=== PATIENT | female | born 1950 | race Caucasian/White ===

== ENCOUNTER 2024-07-27 10:31 | Inpatient (IN) | payer MEDICARE ==
--- NOTE | 2024-07-27 11:23 | ED ---
General Adult HPI - General Chief complaint: Altered Mental Status Stated complaint: AMS Time Seen by Provider: 07/27/24 10:50 Source: patient, family, RN notes reviewed, old records reviewed Mode of arrival: ambulatory - History of Present Illness Initial comments: This is a 73-year-old female whose sister has her come to the emergency department because she is confused. According to the sister last night after they ate dinner the patient was slightly confused and then she went down to get dressed and the patient was standing there with her close but was unable to figure out how to put her pajamas on. Sister states she does have a seizure history but does not know what medication she is on. Sister stated that she thought she might get over it so she slept overnight and this morning the patient continued to be significantly confused so she brought her into [facility] department. Patient has not had any recent fever chills or cough or patient has no nausea vomiting or diarrhea recently patient has no complaints herself. And she does not know why she is here and does not remember any of these episodes where she was confused but continues to be confused here - Related Data Home Medications Medication Instructions Recorded Confirmed Atorvastatin [Lipitor] 40 mg PO DAILY 07/27/24 07/27/24 Citalopram Hydrobromide [CeleXA] 10 mg PO DAILY 07/27/24 07/27/24 Losartan [Cozaar] 50 mg PO DAILY 07/27/24 07/27/24 clonazePAM [KlonoPIN] 0.25 mg PO TID PRN 07/27/24 07/27/24 hydroCHLOROthiazide [Hydrodiuril] 25 mg PO DAILY 07/27/24 07/27/24 levETIRAcetam [Keppra] 1,000 mg PO BID 07/27/24 07/27/24 Allergies Allergy/AdvReac Type Severity Reaction Status Date / Time No Known Allergies Allergy Verified 07/27/24 11:20 Review of Systems ROS Statement: Those systems with pertinent positive or pertinent negative responses have been documented in the HPI. ROS Other: All systems not noted in ROS Statement are negative. Past Medical History Past Medical History: Hyperlipidemia, Hypertension Past Surgical History: No Surgical Hx Reported General Exam - General Exam Comments Initial Comments: GENERAL: Patient is well-developed and well-nourished. Patient is nontoxic and well-hydr ated and is in no acute distress. ENT: Neck is soft and supple. No significant lymphadenopathy is noted. Oropharynx is clear. Moist mucous membranes. Neck has full range of motion without eliciting any pain. EYES: The sclera were anicteric and conjunctiva were pink and moist. Extraocular mov ements were intact and pupils were equal round and reactive to light. Eyelids were unremarkable. PULMONARY: Unlabored respirations. Good breath sounds bilaterally. No audible rales rhonchi or wheezing was noted. CARDIOVASCULAR: There is a regular rate and rhythm without any murmurs gallops or rubs. ABDOMEN: Soft and nontender with normal bowel sounds. No palpable organomegaly was noted. There is no palpable pulsatile mass. SKIN: Skin is clear with no lesions or rashes and otherwise unremarkable. NEUROLOGIC: Patient is alert and oriented x 2. Patient could not figure out how to take her for close to get a count on cranial nerves II through XII are grossly intact. Motor and sensory are also intact. Normal speech, volume and content. Symmetrical smile. MUSCULOSKELETAL: Normal extremities with adequate strength and full range of motion. No lower extremity swelling or edema. No calf tenderness. LYMPHATICS: No significant lymphadenopathy is noted PSYCHIATRIC: Unable to assess secondary to the patient's altered mental status Course Vital Signs 07/27/24 07/27/24 07/27/24 10:42 11:52 13:03 Temperature 97.7 F Pulse Rate 72 66 89 Respiratory 20 18 12 Rate Blood Pressure 218/75 187/75 213/78 O2 Sat by Pulse 95 97 98 Oximetry 07/27/24 14:14 Temperature Pulse Rate 79 Respiratory 16 Rate Blood Pressure 153/74 O2 Sat by Pulse Oximetry Medical Decision Making - Medical Decision Making EKG shows a sinus rhythm at 72 bpm NC 165 QRS is 90 QT interval 373 QTc is 397. Patient's EKG shows no ST segment elevation or depression Was pt. sent in by a medical professional or institution (, PA, MINESWEEPING OFFICER, urgent care, hospital, or [facility]...) When possible be specific @ -No Did you speak to anyone other than the patient for history (EMS, parent, family, police, friend...)? What history was obtained from this source @ -No Did you review nursing and triage notes (agree or disagree)? Why? @ -I reviewed and agree with nursing and triage notes Were old charts reviewed (outside hosp., previous admission, EMS record, old EKG, old radiological studies, urgent care reports/EKG's, [facility] records)? Report findings @ -No old charts were reviewed Differential Diagnosis? @ -Differential Altered Mental Status: Hypoglycemia, DKA, hypercapnia, ETOH, overdose, CO poisoning, trauma, myxedema coma, HTN encephalopathy, infection, encephalitis, psychosis, intercranial hemorrhage, hepatic encephalopathy, meningitis, CVA, seizure, this is not meant to be an all-inclusive list EKG interpreted by me (3pts min.). @ -As above X-rays interpreted by me (1pt min.). @ -Chest x-ray shows no acute abnormality CT interpreted by me (1pt min.). @ -CT of the brain showed no acute abnormality. Patient had a seizure and fell in the room and hit her head and a CT of the brain and neck were done and showed no acute abnormality U/S interpreted by me (1pt. min.). @ -None done What testing was considered but not performed or refused? (CT, X-rays, U/S, labs)? Why? @ -None What meds were considered but not given or refused? Why? @ -None Did you discuss the management of the patient with other professionals (professionals i.e. , PA, MINESWEEPING OFFICER, lab, RT, psych nurse, social worker delinquency prevention, access clinician, teacher, credit risk officer, real estate office manager)? Give summary @ -I spoke with [place] [facility] they agreed to admit the patient Was smoking cessation discussed for >3mins.? @ -No Was critical care preformed (if so, how long)? @ -No Were there social determinants of health that impacted care today? How? (Homelessness, low income, unemployed, alcoholism, drug addiction, transportation, low edu. Level, literacy, decrease access to med. care, snf, rehab)? @ -No Was there de-escalation of care discussed even if they declined (Discuss DNR or withdrawal of care, Hospice)? DNR status @ -No What co-morbidities impacted this encounter? (DM, HTN, Smoking, COPD, CAD, Cancer, CVA, ARF, Chemo, Hep., AIDS, mental health diagnosis, sleep apnea, mo rbid obesity)? @ -None Was patient admitted / discharged? Hospital course, mention meds given and ro jamul, prescriptions, significant lab abnormalities, going to OR and other pertinent info. @ -Patient had a seizure in the emergency department and hit her head and neck the repeat CT of the brain was done and his C-spine was done and it was negative. Patient was given Ativan and Keppra. Undiagnosed new problem with uncertain prognosis? @ -No Drug Therapy requiring intensive monitoring for toxicity (Heparin, Nitro, Insulin, Cardizem)? @ -No Were any procedures done? @ -No Diagnosis/symptom? @ -Status epilepticus Acute, or Chronic, or Acute on Chronic? @ -Acute Uncomplicated (without systemic symptoms) or Complicated (systemic symptoms)? @ -Complicated Side effects of treatment? @ -No Exacerbation, Progression, or Severe Exacerbation? @ -No Poses a threat to life or bodily function? How? (Chest pain, USA, NC, pneumonia, PE, COPD, DKA, ARF, appy, cholecystitis, CVA, Diverticulitis, Homicidal, Suicidal, threat to staff... and all critical care pts) @ -Yes this can lead to further seizures and morbidity. Diagnosis/symptom? @ -Altered mental status Acute, or Chronic, or Acute on Chronic? @ -Acute Uncomplicated (without systemic symptoms) or Complicated (systemic symptoms)? @ -Complicated Side effects of treatment? @ -None Exacerbation, Progression, or Severe Exacerbation] @ -No Poses a threat to life or bodily function? @ -No - Lab Data Result diagrams: 07/27/24 11:22 07/27/24 11:22 Lab Results 07/27/24 07/27/24 07/27/24 Range/Units 11:22 11:22 11:22 WBC 6.7 (3.8-10.6) k/uL RBC 4.89 (3.80-5.40) m/uL Hgb 14.6 (11.4-16.0) gm/dL Hct 43.0 (34.0-46.0) % MCV 87.9 (80.0-100.0) fL MCH 29.8 (25.0-35.0) pg MCHC 34.0 (31.0-37.0) g/dL RDW 13.1 (11.5-15.5) % Plt Count 197 (150-450) k/uL MPV 7.6 Neutrophils % 70 % Lymphocytes % 21 % Monocytes % 4 % Eosinophils % 2 % Basophils % 1 % Neutrophils # 4.7 (1.3-7.7) k/uL Lymphocytes # 1.4 (1.0-4.8) k/uL Monocytes # 0.3 (0-1.0) k/uL Eosinophils # 0.1 (0-0.7) k/uL Basophils # 0.1 (0-0.2) k/uL Sodium 140 (137-145) mmol/L Potassium 5.0 (3.5-5.1) mmol/L Chloride 102 (98-107) mmol/L Carbon Dioxide 28 (22-30) mmol/L Anion Gap 10 mmol/L BUN 18 H (7-17) mg/dL Creatinine 0.74 (0.52-1.04) mg/dL Est GFR (CKD-EPI)AfAm >90 (>60 ml/min/1.73 sqM) Est GFR (CKD-EPI)NonAf 82 (>60 ml/min/1.73 sqM) Glucose 94 (74-99) mg/dL POC Glucose (mg/dL) (70-110) mg/dL POC Glu Educational Diagnostician ID Calcium 10.2 (8.4-10.2) mg/dL Total Bilirubin 1.2 (0.2-1.3) mg/dL AST 42 H (14-36) U/L ALT 34 (4-34) U/L Alkaline Phosphatase 102 (38-126) U/L Troponin I 0.017 (0.000-0.034) ng/mL Total Protein 7.5 (6.3-8.2) g/dL Albumin 4.8 (3.5-5.0) g/dL Urine Color Urine Appearance (Clear) Urine pH (5.0-8.0) Ur Specific Jessie (1.001-1.035) Urine Protein (Negative) Urine Glucose (UA) (Negative) Urine Ketones (Negative) Urine Blood (Negative) Urine Nitrite (Negative) Urine Bilirubin (Negative) Urine Urobilinogen (<2.0) mg/dL Ur Leukocyte Esterase (Negative) Urine Opiates Screen (NotDetected) Ur Oxycodone Screen (NotDetected) Urine Methadone Screen (NotDetected) Ur Barbiturates Screen (NotDetected) U Tricyclic Antidepress (NotDetected) Ur Phencyclidine Scrn (NotDetected) Ur Amphetamines Screen (NotDetected) U Methamphetamines Scrn (NotDetected) U Benzodiazepines Scrn (NotDetected) Urine Cocaine Screen (NotDetected) U Marijuana (THC) Screen (NotDetected) 07/27/24 07/27/24 07/27/24 Range/Units 11:23 11:55 13:41 WBC (3.8-10.6) k/uL RBC (3.80-5.40) m/uL Hgb (11.4-16.0) gm/dL Hct (34.0-46.0) % MCV (80.0-100.0) fL MCH (25.0-35.0) pg MCHC (31.0-37.0) g/dL RDW (11.5-15.5) % Plt Count (150-450) k/uL MPV Neutrophils % % Lymphocytes % % Monocytes % % Eosinophils % % Basophils % % Neutrophils # (1.3-7.7) k/uL Lymphocytes # (1.0-4.8) k/uL Monocytes # (0-1.0) k/uL Eosinophils # (0-0.7) k/uL Basophils # (0-0.2) k/uL Sodium (137-145) mmol/L Potassium (3.5-5.1) mmol/L Chloride (98-107) mmol/L Carbon Dioxide (22-30) mmol/L Anion Gap mmol/L BUN (7-17) mg/dL Creatinine (0.52-1.04) mg/dL Est GFR (CKD-EPI)AfAm (>60 ml/min/1.73 sqM) Est GFR (CKD-EPI)NonAf (>60 ml/min/1.73 sqM) Glucose (74-99) mg/dL POC Glucose (mg/dL) 94 (70-110) mg/dL POC Glu Educational Diagnostician ID Jarrod Johnson Calcium (8.4-10.2) mg/dL Total Bilirubin (0.2-1.3) mg/dL AST (14-36) U/L ALT (4-34) U/L Alkaline Phosphatase (38-126) U/L Troponin I (0.000-0.034) ng/mL Total Protein (6.3-8.2) g/dL Albumin (3.5-5.0) g/dL Urine Color Colorless Urine Appearance Clear (Clear) Urine pH 6.0 (5.0-8.0) Ur Specific Jessie 1.008 (1.001-1.035) Urine Protein Negative (Negative) Urine Glucose (UA) Negative (Negative) Urine Ketones Negative (Negative) Urine Blood Negative (Negative) Urine Nitrite Negative (Negative) Urine Bilirubin Negative (Negative) Urine Urobilinogen <2.0 (<2.0) mg/dL Ur Leukocyte Esterase Negative (Negative) Urine Opiates Screen Not Detected (NotDetected) Ur Oxycodone Screen Not Detected (NotDetected) Urine Methadone Screen Not Detected (NotDetected) Ur Barbiturates Screen Not Detected (NotDetected) U Tricyclic Antidepress Not Detected (NotDetected) Ur Phencyclidine Scrn Not Detected (NotDetected) Ur Amphetamines Screen Not Detected (NotDetected) U Methamphetamines Scrn Not Detected (NotDetected) U Benzodiazepines Scrn Not Detected (NotDetected) Urine Cocaine Screen Not Detected (NotDetected) U Marijuana (THC) Screen Not Detected (NotDetected) Critical Care Time Critical Care Time: Yes Total Critical Care Time: 35 Disposition Clinical Impression: Altered mental status, Status epilepticus Disposition: ADMITTED IP TO [facility] Instructions (If sedation given, give patient instructions): Seizure/Epilepsy Discharge Instructions & Follow-Up Referrals: None,Stated [REFERRING] - 1-2 days Time of Disposition: 14:17
[2024-07-27 11:31] LABS: Basophils # (A) 0.1 k/uL (0-0.2); Basophils % (A) 1 %; Eosinophils # (A) 0.1 k/uL (0-0.7); Eosinophils % (A) 2 %; HGB 14.6 gm/dL (11.4-16.0); Lymphocytes # (A) 1.4 k/uL (1.0-4.8); Lymphocytes % (A) 21 %; MCH 29.8 pg (25.0-35.0); MCV 87.9 fL (80.0-100.0); Mean Platelet Volume 7.6; Monocytes # (A) 0.3 k/uL (0-1.0); Monocytes % (A) 4 %; Neutrophils # (A) 4.7 k/uL (1.3-7.7); Neutrophils % (A) 70 %; Platelet Count 197 k/uL (150-450); RBC 4.89 m/uL (3.80-5.40); RDW 13.1 % (11.5-15.5); WBC 6.7 k/uL (3.8-10.6)
--- NOTE | 2024-07-27 11:46 | XR ---
EXAMINATION TYPE: XR chest 2V DATE OF EXAM: 07/27/2024 11:42 AM COMPARISON: None TECHNIQUE: XR chest 2V Frontal and lateral views of the chest. CLINICAL INDICATION:Female, 73 years old with history of altered mental status; FINDINGS: Lungs/Pleura: There is no evidence of pleural effusion, focal consolidation, or pneumothorax. Bibasi lar subsegmental atelectasis. Pulmonary vascularity: Unremarkable. Heart/mediastinum: Cardiomediastinal silhouette is prominent in size. Atherosclerotic calcifications are seen in the aorta. Musculoskeletal: No acute osseous pathology. IMPRESSION: No acute cardiopulmonary disease/process. [facility], , 07/27/2024 11:44 AM
[2024-07-27 11:49] LABS: ALT 34 U/L (4-34); African American GFR (CKD) >90 (>60 ml/min/1.73 sqM); Albumin 4.8 g/dL (3.5-5.0); Anion Gap 10 mmol/L; Blood Urea Nitrogen 18 mg/dL (7-17); Calcium 10.2 mg/dL (8.4-10.2); Carbon Dioxide 28 mmol/L (22-30); Chloride 102 mmol/L (98-107); Glucose 94 mg/dL (74-99); Non-African American GFR(CKD) 82 (>60 ml/min/1.73 sqM); Sodium 140 mmol/L (137-145); Total Bilirubin 1.2 mg/dL (0.2-1.3); Total Protein 7.5 g/dL (6.3-8.2)
[2024-07-27 11:50] LABS: AST 42 U/L (14-36); Alkaline Phosphatase 102 U/L (38-126)
[2024-07-27] MEDS: SODIUM CHLORIDE 0.9% 500 ML 500 ML IV ONE (11:51)
[2024-07-27 11:56] LABS: Glucose,Whole Blood 94 mg/dL (70-110)
--- NOTE | 2024-07-27 11:58 | CT ---
EXAMINATION TYPE: CT brain wo con CT DLP: 1110.4 mGycm, Automated exposure control for dose reduction was used. DATE OF EXAM: 07/27/2024 11:44 AM COMPARISON: None. CLINICAL INDICATION:Female, 73 years old with history of Altered mental status, AMS. confusion, speec h difficulty TECHNIQUE: Brain: Multiple axial CT images of the brain were obtained without IV contrast. . Coronal and sagitta l reformats reviewed. FINDINGS: Brain: Extra-axial spaces: No abnormal extra-axial fluid collections. Ventricular system: Within normal limits Cerebral parenchyma: No acute intraparenchymal hemorrhage or mass effect. The salter-white junction is well differentiated. Scattered hypoattenuating areas are seen within the periventricular white matte r. Cerebellum: Unremarkable. Mass effect: No evidence of midline shift. Intracranial vasculature: Atherosclerotic calcifications of the intracranial vessels. Soft tissues: Normal. Calvarium/osseous structures: No depressed skull fracture. Paranasal sinuses and mastoid air cells: Minimal mucosal thickening in the inferior right maxillary s inus with additional 5 mm mucous retention cyst along the medial wall. Remaining paranasal sinuses ar e clear. Opacification of bilateral mastoid air cells. Visualized orbits: Bilateral aphakia IMPRESSION: 1. No acute intracranial process. 2. Nonspecific white matter changes, likely secondary to chronic small vessel ischemic disease. 3. Bilateral mastoid effusions. [facility], , 07/27/2024 11:55 AM
[2024-07-27] MEDS: LORazepam 2 MG/ML INJ IV STA (13:10)
--- NOTE | 2024-07-27 13:52 | CT ---
EXAMINATION TYPE: CT brain cspine wo con CT DLP: 1369 mGycm, Automated exposure control for dose reduction was used. DATE OF EXAM: 07/27/2024 1:43 PM COMPARISON: CT brain 07/27/2024. CLINICAL INDICATION:Female, 73 years old with history of Trauma; trauma, fall, altered mental status TECHNIQUE: Brain: Multiple axial CT images of the brain were obtained without IV contrast. Cspine: Axial CT images from the skull base to the inferior aspect of T2 we obtained without intraven ous contrast. Coronal and sagittal reformatted images were also reviewed. FINDINGS: Brain: Extra-axial spaces: No abnormal extra-axial fluid collections. Ventricular system: Within normal limits Cerebral parenchyma: No acute intraparenchymal hemorrhage or mass effect. The salter-white junction is well differentiated. Scattered hypoattenuating areas are seen within the periventricular white matte r. Cerebellum: Unremarkable. Mass effect: No evidence of midline shift. Intracranial vasculature: Atherosclerotic calcifications of the intracranial vessels. Soft tissues: Normal. Calvarium/osseous structures: No depressed skull fracture. Paranasal sinuses and mastoid air cells: Minimal mucosal thickening in the inferior right maxillary s inus with additional 5 mm mucous retention cyst along the medial wall. Remaining paranasal sinuses a re clear. Opacification of bilateral mastoid air cells. Visualized orbits: Bilateral aphakia Cervical spine: Fracture: None. Osseous structures: Multilevel degenerative disc disease changes with endplate spurring and disc oste ophyte complex's. Multilevel uncovertebral joint and facet arthropathy. Vertebral alignment: Within normal limits. Spinal canal/Neural Foramina: Disc osteophyte complexes at C3-C4, C4-C5, C5-C6, C6-C7 with at least m ild spinal canal stenosis. Facet joint uncovertebral joint arthropathy scattered throughout the cervi lexa spine with varying degrees of neural foraminal stenosis. Neck soft tissues: Prevertebral soft tissues are within normal limits. Other: The airway is patent. The lung apices are clear. Multinodular thyroid gland of the nodular gla nd with largest distinct nodule measured 1.5 cm and left thyroid lobe. IMPRESSION: 1. No acute intracranial process. 2. Nonspecific white matter changes, likely secondary to chronic small vessel ischemic disease. 3. Bilateral mastoid effusions. 4. No evidence of cervical spine fracture. 5. Moderate multilevel degenerative disc disease. 6. Multinodular thyroid gland. Consider further evaluation with outpatient thyroid ultrasound. [facility], , 07/27/2024 1:49 PM
[2024-07-27 13:53] LABS: Appearance,Urine Clear (Clear); Bilirubin,Urine Negative (Negative); Blood,Urine Negative (Negative); Color,Urine Colorless; Glucose,Urine (UA) Negative (Negative); Ketones,Urine Negative (Negative); Leukocyte Esterase,Urine Negative (Negative); Nitrite,Urine Negative (Negative); Protein,Urine Negative (Negative); Specific Gravity,Urine 1.008 (1.001-1.035); Urobilinogen,Urine <2.0 mg/dL (<2.0)
[2024-07-27 14:00] LABS: Amphetamine Screen,Urine Not Detected (NotDetected); Barbiturate Screen,Urine Not Detected (NotDetected); Benzodiazepines Screen,Urine Not Detected (NotDetected); Cocaine Screen,Urine Not Detected (NotDetected); Methadone Screen, Urine Not Detected (NotDetected); Opiate Screen,Urine Not Detected (NotDetected); Oxycodone Screen, Urine Not Detected (NotDetected); Phencyclidine Screen,Urine Not Detected (NotDetected); Tricyclic Antidepressant,Urine Not Detected (NotDetected); Urn Cannabinoid Scrn Not Detected (NotDetected)
[2024-07-27] MEDS: levETIRAcetam IV 500 MG/5 ML VIAL IVP STA (17:23)
[2024-07-27] MEDS: levETIRAcetam 500 MG TAB PO SCH (21:56)
[2024-07-27] MEDS: clonazePAM 0.5 MG TAB PO PRN (21:59)
[2024-07-28] MEDS: LORazepam 2 MG/ML INJ IV PRN (00:20)
[2024-07-28 00:25] LABS: Glucose,Whole Blood 123 mg/dL (70-110)
[2024-07-28] MEDS: levETIRAcetam IV 500 MG/5 ML VIAL IVP SCH (01:01)
[2024-07-28] MEDS: ATORVASTATIN 40 MG TAB PO SCH (08:28)
[2024-07-28] MEDS: hydroCHLOROthiazide 25 MG TAB PO SCH (08:29)
[2024-07-28] MEDS: LOSARTAN 50 MG TAB PO SCH (08:29)
[2024-07-28] MEDS: CITALOPRAM HYDROBROMIDE 10 MG TAB PO SCH (08:35)
[2024-07-28 09:13] LABS: Basophils # (A) 0.06 X 10*3/uL (0.00-0.10); Basophils % (A) 0.5 %; Eosinophils # (A) 0 X 10*3/uL (0.04-0.35); Eosinophils % (A) 0 %; HCT 40.1 % (37.2-46.3); HGB 13.6 g/dL (12.0-15.0); Lymphocytes # (A) 0.89 X 10*3/uL (0.90-5.00); MCH 29.8 pg (27.0-32.0); MCHC 33.9 g/dL (32.0-37.0); MCV 87.9 FL (80.0-97.0); Mean Platelet Volume 10.1 FL (9.5-12.2); Monocytes # (A) 0.34 X 10*3/uL (0.20-1.00); NRBC Per 100 WBC 0 X 10*3/uL (0.00-0.01); Neutrophils # (A) 9.82 X 10*3/uL (1.80-7.70); Platelet Count 201 X 10*3/uL (140-440); RBC 4.56 X 10*6/uL (4.10-5.20); RDW 12.5 % (11.5-14.5); WBC 11.17 X 10*3/uL (4.50-10.00)
[2024-07-28 12:40] LABS: Blood Urea Nitrogen 15.6 mg/dL (9.0-27.0); Calcium 9.5 mg/dL (8.7-10.3); Carbon Dioxide 23.1 mmol/L (21.6-31.8); Chloride 103 mmol/L (96-109); Glucose 110 mg/dL (70-110); Potassium 4.1 mmol/L (3.5-5.5); Sodium 139 mmol/L (135-145)
[2024-07-28] MEDS ORDERED: METOCLOPRAMIDE 5 MG/ML 2 ML VIAL IVP PRN (13:17)
--- NOTE | 2024-07-28 14:42 | P.HPIM ---
History of Present Illness H&P Date: 07/27/24 Chief Complaint: Altered mental status 73-year-old female, history of hypertension, hyperlipidemia, seizure disorder, depression/anxiety, whose sister has her come to the emergency department because she is confused. According to the sister last night after they ate dinner the patient was slightly confused and then she went down to get dressed and the patient was standing there with her close but was unable to figure out how to put her pajamas on. Sister states she does have a seizure history but does not know what medication she is on. Sister stated that she thought she might get over it so she slept overnight and this morning the patient continued to be significantly confused so she brought her into the emergency department. Patient has not had any recent fever chills or cough or patient has no nausea vomiting or diarrhea recently patient has no complaints herself. And she does not know why she is here and does not remember any of these episodes where she was confused but continues to be confused here Blood work reveals WBC of 6.7, hemoglobin of 14.6 and platelet count of 197, sodium 140, potassium 5.0, BUNs/creatinine of 18/0.74 and blood glucose of 94 --CT of the brain and head and neck was completed which was negative for any acute abnormality -Chest x-ray is negative for any acute pulmonary process Review of Systems REVIEW OF SYSTEMS: CONSTITUTIONAL: No fever, no malaise, no fatigue. HEENT: No recent visual problems or hearing problems. Denied any sore throat. CARDIOVASCULAR: No chest pain, orthopnea, PND, no palpitations, no syncope. PULMONARY: No shortness of breath, no cough, no hemoptysis. GASTROINTESTINAL: No diarrhea, no nausea, no vomiting, no abdominal pain. NEUROLOGICAL: No headaches, no weakness, no numbness. HEMATOLOGICAL: Denies any bleeding or petechiae. GENITOURINARY: Denies any burning micturition, frequency, or urgency. MUSCULOSKELETAL/RHEUMATOLOGICAL: Denies any joint pain, swelling, or any muscle pain. ENDOCRINE: Denies any polyuria or polydipsia. The rest of the 14-point review of systems is negative. Past Medical History Past Medical History: Hyperlipidemia, Hypertension History of Any Multi-Drug Resistant Organisms: None Reported Past Surgical History: Orthopedic Surgery Past Anesthesia/Blood Transfusion Reactions: No Reported Reaction Smoking Status: Never smoker Medications and Allergies Home Medications Medication Instructions Recorded Confirmed Type Atorvastatin [Lipitor] 40 mg PO DAILY 07/27/24 07/27/24 History Citalopram Hydrobromide [CeleXA] 10 mg PO DAILY 07/27/24 07/27/24 History Losartan [Cozaar] 50 mg PO DAILY 07/27/24 07/27/24 History clonazePAM [KlonoPIN] 0.25 mg PO TID PRN 07/27/24 07/27/24 History hydroCHLOROthiazide [Hydrodiuril] 25 mg PO DAILY 07/27/24 07/27/24 History levETIRAcetam [Keppra] 1,000 mg PO BID 07/27/24 07/27/24 History Allergies Allergy/AdvReac Type Severity Reaction Status Date / Time No Known Allergies Allergy Verified 07/27/24 11:20 Physical Exam Vitals: Vital Signs Temp Pulse Resp BP Pulse Ox 07/27/24 14:48 98.6 F 75 16 180/75 100 07/27/24 14:14 79 16 153/74 07/27/24 13:03 89 12 213/78 98 07/27/24 11:52 66 18 187/75 97 07/27/24 10:42 97.7 F 72 20 218/75 95 Intake and Output 07/27/24 07/27/24 07/27/24 06:59 14:59 22:59 Other: # Voids 0 Weight 69.127 kg Patient is well-developed and well-nourished. Patient is nontoxic and well- hydrated and is in no acute distress. ENT: Neck is soft and supple. No significant lymphadenopathy is noted. Oropharynx is clear. Moist mucous membranes. Neck has full range of motion without eliciting any pain. EYES: The sclera were anicteric and conjunctiva were pink and moist. Extraocular movements were intact and pupils were equal round and reactive to light. Eyelids were unremarkable. PULMONARY: Unlabored respirations. Good breath sounds bilaterally. No audible rales rhonchi or wheezing was noted. CARDIOVASCULAR: There is a regular rate and rhythm without any murmurs gallops or rubs. ABDOMEN: Soft and nontender with normal bowel sounds. No palpable organomegaly was noted. There is no palpable pulsatile mass. SKIN: Skin is clear with no lesions or rashes and otherwise unremarkable. NEUROLOGIC: Patient is alert and oriented x 2. Patient could not figure out how to take her for close to get a count on cranial nerves II through XII are grossly intact. Motor and sensory are also intact. Normal speech, volume and content. Symmetrical smile. MUSCULOSKELETAL: Normal extremities with adequate strength and full range of motion. No lower extremity swelling or edema. No calf tenderness. LYMPHATICS: No significant lymphadenopathy is noted PSYCHIATRIC: Unable to assess secondary to the patient's altered mental status Results CBC & Chem 7: 07/28/24 05:53 07/28/24 05:53 Labs: Abnormal Lab Results - Last 24 Hours (Table) 07/27/24 Range/Units 11:22 BUN 18 H (7-17) mg/dL AST 42 H (14-36) U/L Thrombosis Risk Factor Assmnt - Choose All That Apply Any of the Below Risk Factors Present?: No Other Risk Factors: Yes Each Risk Factor Represents 2 Points: Age 61-74 years Other congenital or acquired thrombophilia - If yes, enter type in comment: No Thrombosis Risk Factor Assessment Total Risk Factor Score: 2 Thrombosis Risk Factor Assessment Level: Low Risk Assessment and Plan Assessment: 1. Altered mental status; likely related to status epilepticus; patient remains somewhat confused 2. Status epilepticus; patient received Keppra 1000 mg IV push in ED continue with Keppra 1000 mg every 12 hours; -Patient remains on seizure precautions; neurochecks per protocol; Ativan 1 mg IV push for breakthrough seizures -Neurology is consulted; recommendations are pending 3. Hypertension; losartan 50 mg daily 4. Hyperlipidemia; Lipitor 40 mg daily; hydrochlorothiazide 25 mg daily 5. Depression/anxiety; Celexa 10 mg daily, Klonopin 0.25 mg 3 times daily as needed
--- NOTE | 2024-07-28 14:43 | P.PN ---
Subjective Progress Note Date: 07/28/24 73-year-old female, history of hypertension, hyperlipidemia, seizure disorder, depression/anxiety, whose sister has her come to the emergency department because she is confused. According to the sister last night after they ate dinner the patient was slightly confused and then she went down to get dressed and the patient was standing there with her close but was unable to figure out how to put her pajamas on. Sister states she does have a seizure history but does not know what medication she is on. Sister stated that she thought she might get over it so she slept overnight and this morning the patient continued to be significantly confused so she brought her into the emergency department. Patient has not had any recent fever chills or cough or patient has no nausea vomiting or diarrhea recently patient has no complaints herself. And she does not know why she is here and does not remember any of these episodes where she was confused but continues to be confused here Blood work reveals WBC of 6.7, hemoglobin of 14.6 and platelet count of 197, sodium 140, potassium 5.0, BUNs/creatinine of 18/0.74 and blood glucose of 94 --CT of the brain and head and neck was completed which was negative for any acute abnormality -Chest x-ray is negative for any acute pulmonary process -No further seizures since admission; patient has been evaluated by neurology and EEG is ordered; Keppra level ordered and pending Objective - Vital Signs Vital signs: Vital Signs Temp 98.3 F 07/28/24 07:11 Pulse 83 07/28/24 07:11 Resp 15 07/28/24 07:11 BP 164/66 07/28/24 07:11 Pulse Ox 95 07/28/24 07:11 FiO2 Intake & Output 07/27/24 07/28/24 07/28/24 18:59 06:59 18:59 Intake Total 240 Balance 240 Weight 69.127 kg Intake: Oral 240 Other: Voiding Method Bedside Commode Bedside Commode Diaper Diaper # Voids 0 3 1 - Exam Patient is well-developed and well-nourished. Patient is nontoxic and well- hydrated and is in no acute distress. ENT: Neck is soft and supple. No significant lymphadenopathy is noted. Oropharynx is clear. Moist mucous membranes. Neck has full range of motion without eliciting any pain. EYES: The sclera were anicteric and conjunctiva were pink and moist. Extraocular movements were intact and pupils were equal round and reactive to light. Eyelids were unremarkable. PULMONARY: Unlabored respirations. Good breath sounds bilaterally. No audible rales rhonchi or wheezing was noted. CARDIOVASCULAR: There is a regular rate and rhythm without any murmurs gallops or rubs. ABDOMEN: Soft and nontender with normal bowel sounds. No palpable organomegaly was noted. There is no palpable pulsatile mass. SKIN: Skin is clear with no lesions or rashes and otherwise unremarkable. NEUROLOGIC: Patient is alert and oriented x 2. Patient could not figure out how to take her for close to get a count on cranial nerves II through XII are grossly intact. Motor and sensory are also intact. Normal speech, volume and content. Symmetrical smile. MUSCULOSKELETAL: Normal extremities with adequate strength and full range of motion. No lower extremity swelling or edema. No calf tenderness. LYMPHATICS: No significant lymphadenopathy is noted PSYCHIATRIC: Unable to assess secondary to the patient's altered mental status - Labs CBC & Chem 7: 07/28/24 05:53 07/28/24 05:53 Labs: Abnormal Lab Results - Last 24 Hours (Table) 07/27/24 07/28/24 07/28/24 Range/Units 11:22 00:23 05:53 WBC 11.17 H (4.50-10.00) X 10*3/uL Immature Gran # 0.06 H (0.00-0.04) X 10*3/uL Neutrophils # 9.82 H (1.80-7.70) X 10*3/uL Lymphocytes # 0.89 L (0.90-5.00) X 10*3/uL Eosinophils # 0 L (0.04-0.35) X 10*3/uL BUN 18 H (7-17) mg/dL POC Glucose (mg/dL) 123 H (70-110) mg/dL AST 42 H (14-36) U/L Assessment and Plan Assessment: 1. Altered mental status; likely related to status epilepticus; patient remains somewhat confused 2. Status epilepticus; patient received Keppra 1000 mg IV push in ED continue with Keppra 1000 mg every 12 hours; -Patient remains on seizure precautions; neurochecks per protocol; Ativan 1 mg IV push for breakthrough seizures -Neurology is consulted; recommendations are pending 3. Hypertension; losartan 50 mg daily 4. Hyperlipidemia; Lipitor 40 mg daily; hydrochlorothiazide 25 mg daily 5. Depression/anxiety; Celexa 10 mg daily, Klonopin 0.25 mg 3 times daily as needed
--- NOTE | 2024-07-28 15:43 | P.CNNES ---
History of Present Illness Consult date: 07/28/24 Reason for Consult: Status epilepticus, altered mental status History of Present Illness: The patient is a 73-year-old, right-handed female who is seen in neurologic consultation on July 28, 2024, in collaboration with Laury Burroughs, via teleneurology. History is obtained entirely from review of the chart. The patient is unable to provide any history. Patient is unable to state why she is in the hospital. She denies headache. She does report a history of seizure disorder however is unable to report when her most recent seizure was. There are no family members at the bedside at the time of this evaluation. The patient denies difficulty with memory at baseline. She denies missing any doses of her seizure medication. She is however unable to state what seizure medication she takes. She believes that her neurologist, "left the practice". She is however eventually able to state the name of her neurologist, Dr. Blevins. The patient's nurse does report that last p.m., the patient had a seizure. In review of the emergency department note and history and physical, the patient was brought into the emergency department by her sister, because of confusion. Apparently the patient was trying to get ready for bed and was unable to recall how to put on her pajamas. I am unable to find any documentation stating that the sister witnessed a seizure or that seizure was suspected. In the emergency department, CT scan of the brain was performed. There is no reported evidence of acute hemorrhage or infarct. Blood pressure in the emergency department was elevated at 218/95. Review of Systems Unable to be obtained secondary to mental status the patient Past Medical History Past Medical History: Hyperlipidemia, Hypertension History of Any Multi-Drug Resistant Organisms: None Reported Past Surgical History: Orthopedic Surgery Past Anesthesia/Blood Transfusion Reactions: No Reported Reaction Smoking Status: Never smoker Medications and Allergies Home Medications Medication Instructions Recorded Confirmed Type Atorvastatin [Lipitor] 40 mg PO DAILY 07/27/24 07/27/24 History Citalopram Hydrobromide [CeleXA] 10 mg PO DAILY 07/27/24 07/27/24 History Losartan [Cozaar] 50 mg PO DAILY 07/27/24 07/27/24 History clonazePAM [KlonoPIN] 0.25 mg PO TID PRN 07/27/24 07/27/24 History hydroCHLOROthiazide [Hydrodiuril] 25 mg PO DAILY 07/27/24 07/27/24 History levETIRAcetam [Keppra] 1,000 mg PO BID 07/27/24 07/27/24 History Allergies Allergy/AdvReac Type Severity Reaction Status Date / Time No Known Allergies Allergy Verified 07/27/24 11:20 Physical Examination - Vital Signs Vital Signs: Vital Signs Temp Pulse Pulse Resp BP BP Pulse Ox 07/28/24 07:11 98.3 F 83 15 164/66 95 07/28/24 02:00 98.3 F 76 14 163/52 97 07/28/24 00:25 97.6 F 98 16 164/74 96 07/27/24 19:47 98.1 F 72 14 175/82 93 L 07/27/24 19:30 72 14 07/27/24 14:48 98.6 F 75 16 180/75 100 07/27/24 14:14 79 16 153/74 07/27/24 13:03 89 12 213/78 98 07/27/24 11:52 66 18 187/75 97 07/27/24 10:42 97.7 F 72 20 218/75 95 Intake and Output 07/27/24 07/28/24 07/28/24 22:59 06:59 14:59 Intake Total 240 Balance 240 Intake: Oral 240 Other: Voiding Method Bedside Commode Diaper # Voids 0 3 2 General: The patient is reclining in bed. She is well-nourished, well-developed and in no acute distress HEENT: Head is atraumatic, normocephalic. Fundus not visualized. There is no scleral icterus. Mucous membranes are moist. Neck: Supple without carotid bruits Heart: Regular rate rhythm Lungs: Essentially clear to auscultation Extremities: Without edema Neurological examination Mental status: The patient is awake and alert. She is able to state her name, date of , "hospital" and "[place]". The patient is not oriented to her age, the current year or month. She states that "[place]" is president. There is perseveration of speech. The patient is able to name and "pen" she is unable to name and "watch" she is able to state that is used for telling time. She is able to name "potato chips". She is able to accurately repeat a simple phrase. She is unable to draw a clock. She is unable to write the word "blue". She is able to identify her left thumb. She is unable to follow two-step commands. She states that she is left-handed however, when I handed the pen to write, she takes it in her right hand. The patient appears to have significant word finding difficulties Cranial nerves: Pupils are equal at 3 mm and reactive. Visual newman are full to confrontation. Extraocular movements are intact. There is no nystagmus. Facial sensation is intact. There is no facial asymmetry. Hearing is grossly intact. Uvula and palate are midline. Shoulder shrug is symmetric. Tongue protrudes midline with a right sided tongue bite. Motor: Strength is 5/5 in the bilateral upper extremities. Bilateral hip flexors 4/5. Ankle plantar and dorsiflexors 5/5. Sensation: Intact to light touch throughout. There is no extinction with double simultaneous stimulation. Coordination: The patient has difficulty following instructions for coordination testing. Deep tendon reflexes: 3+/4+ throughout. Plantar responses are flexor bilat erally. Ankle clonus is present bilaterally Gait: Not assessed Results - Laboratory Findings CBC and BMP: 07/28/24 05:53 07/28/24 05:53 Abnormal Lab Findings: Abnormal Labs 07/27/24 07/28/24 07/28/24 11:22 00:23 05:53 WBC 11.17 H Immature Gran # 0.06 H Neutrophils # 9.82 H Lymphocytes # 0.89 L Eosinophils # 0 L BUN 18 H POC Glucose (mg/dL) 123 H AST 42 H Assessment and Plan Assessment: 1. Breakthrough seizure with significant postictal confusion 2. History of hypertension 3. History of hyperlipidemia Plan: 1. EEG has been ordered 2. Seizure precautions 3. Ativan 1 mg IV push every 4 hours as needed for seizure 4. Continue current Keppra dosing 5. Keppra level will be checked Thank you for allowing us to participate in the care of this patient Dr. Flores will assume neurologic coverage of this patient as of July 29, 2024 Time with Patient: Greater than 30 (65 minutes were spent caring for this patient today including, obtaining a history, examining the patient, reviewing imaging, chart documentation, labs, placing orders and creating this note)
--- NOTE | 2024-07-29 13:55 | P.PN ---
Subjective Progress Note Date: 07/29/24 Patient is a 73-year-old female with history of epilepsy since she was age 19 when she had her first seizure. At that time she was walking down the street with her friend when she had a seizure in which she was foaming from her mouth, shaking. Patient is not sure about the details of her history. She states that her last seizure was last year on 08/08/2023. She takes Keppra 1000 mg twice daily, denies missing the dose. She may have missed a couple doses of Keppra but couple months ago but nothing recently. Patient states she lives by herself. Patient states that her nephew saw her walking around the coffee pot in circles but she does not remember. She was brought to the hospital with confusion, and in the ER she had a seizure. She bit her tongue. Patient states that she previously tried Dilantin, but was making her feeling tired and sluggish. She was switched to Depakote but produced significant side effects. When she was switched to Keppra. These are all medications she has tried as per patient. Objective - Vital Signs Vital signs: Vital Signs Temp 98.2 F 07/29/24 11:54 Pulse 104 H 07/29/24 11:54 Resp 16 07/29/24 11:54 BP 181/69 07/29/24 11:54 Pulse Ox 92 L 07/29/24 11:54 FiO2 Intake & Output 07/28/24 07/29/24 07/29/24 18:59 06:59 18:59 Intake Total 240 720 Balance 240 720 Intake: Oral 240 720 Other: Voiding Method Bedside Commode Bedside Commode Bedside Commode Diaper Diaper Diaper # Voids 2 3 - Exam Patient is alert and awake, very pleasant no distress. She is slightly forgetful. She had difficulty remembering the month, said was August, and the year is . Speech and language functions are normal. Muscle strength normal. - Labs CBC & Chem 7: 07/28/24 05:53 07/28/24 05:53 Assessment and Plan Assessment: 1. Breakthrough seizure with significant postictal confusion. 2. Primary generalized epilepsy 3. Hyperlipidemia 4. Hypertension Plan: 1. EEG was performed, which according to preliminary report revealed presence of epileptiform activity with paroxysmal generalized spike and slow wave of 3 Hz lasting from 1 to 2 seconds to a maximum 6-second. No electrographic seizure was recorded. This EEG is consistent with interictal expression of primary generalized epilepsy. 2. Seizure precautions 3. Ativan 1 mg IV push every 4 hours as needed for seizure 4. Keppra level 18.8 (3-60). Patient currently on Keppra 1000 mg twice daily. We will increase dose to 1500 mg twice daily. 5. Observe overnight. If stable, may discharge in the morning.
[2024-07-29] MEDS ORDERED: ONDANSETRON 4 MG/2 ML VIAL IVP PRN (15:36)
[2024-07-29] MEDS ORDERED: ACETAMINOPHEN TAB 325 MG TAB PO PRN (15:36)
[2024-07-29] MEDS: FOLIC ACID 1 MG TAB PO SCH (17:15)
[2024-07-29] MEDS: THIAMINE 100 MG TAB PO SCH (17:15)
[2024-07-29] MEDS: amLODIPine 10 MG TAB PO SCH (17:15)
[2024-07-29] MEDS: MULTIVITAMINS, THERA 1 EACH TAB PO SCH (17:15)
[2024-07-29] MEDS: levETIRAcetam 500 MG TAB PO SCH (20:02)
--- NOTE | 2024-07-29 22:24 | EEG ---
ELECTROENCEPHALOGRAM REPORT PREAMBLE: This is a 73-year-old female with history of seizure disorder. CURRENT MEDICATIONS: 1. Lipitor. 2. Klonopin. 3. Keppra. 4. Ativan. 5. Cozaar. EEG FINDINGS: This is a 21-channel digital EEG recorded with video component, utilizing 10/20 international system with referential and bipolar montages. Background consists of well-developed, moderately well regulated, mixed frequencies of 9 hertz alpha, with some fast frequency activity seen in bihemispheric region. Background is posterior dominant and reactive to eye opening and closing. The frequent epileptiform activity was seen with the presence of generalized spike and slow waves at 3 hertz. This would last between 1 to 2 seconds, sometimes up to 3 to 4 seconds and a single event lasted for about 6 seconds. No motor activity was noted during these events. No obvious electrographic seizure was otherwise recorded. Different stages of sleep were not seen. IMPRESSION: This is an abnormal EEG due to presence of generalized spike and slow wave activity seen at 3 hertz, with this activity lasting between 1 to 4 seconds, and a single event lasted for 6 seconds. No electrographic seizure was recorded. Overall, this EEG is consistent with interictal expression of primary generalized epilepsy. MMODL / IJN: [id number] /
--- NOTE | 2024-07-30 08:35 | PN ---
PROGRESS NOTE DATE OF SERVICE: 07/29/2024 SUBJECTIVE: This is a 73-year-old woman, who was admitted with change in mental status, also had a possible seizure. The patient is on antiepileptic medications. No chest pain. No palpitation. OBJECTIVE: VITAL SIGNS: Pulse is 104, blood pressure 180/69, respirations 16. CHEST: Clear to auscultation. CARDIOVASCULAR: S1, S2. ABDOMEN: Soft. NERVOUS SYSTEM: Nonfocal. LABORATORY DATA: Reviewed. ASSESSMENT: 1. Seizure disorder, possibly status epilepticus. 2. Hypertension. 3. Hyperlipidemia. 4. Depression and anxiety. RECOMMENDATIONS: Recommend to continue current management and continue symptomatic treatment. We will add Norvasc to the current regimen. Otherwise, continue rest of medications. Resume home medications. Further recommendations to follow. Seizure medications. Increase ambulation. MMODL / IJN: [id number] /
[2024-07-30 08:50] VITALS: RESP 18
[2024-07-30 09:05] LABS: Basophils # (A) 0.08 X 10*3/uL (0.00-0.10); Basophils % (A) 0.8 %; Eosinophils # (A) 0.03 X 10*3/uL (0.04-0.35); Eosinophils % (A) 0.3 %; HCT 43.5 % (37.2-46.3); HGB 14.7 g/dL (12.0-15.0); Lymphocytes # (A) 1.31 X 10*3/uL (0.90-5.00); Lymphocytes % (A) 13.4 %; MCH 29.7 pg (27.0-32.0); MCHC 33.8 g/dL (32.0-37.0); MCV 87.9 FL (80.0-97.0); Mean Platelet Volume 10.1 FL (9.5-12.2); Monocytes # (A) 0.69 X 10*3/uL (0.20-1.00); Monocytes % (A) 7.1 %; NRBC Per 100 WBC 0 X 10*3/uL (0.00-0.01); Neutrophils # (A) 7.64 X 10*3/uL (1.80-7.70); Neutrophils % (A) 78.1 %; Platelet Count 223 X 10*3/uL (140-440); RBC 4.95 X 10*6/uL (4.10-5.20); RDW 12.6 % (11.5-14.5); WBC 9.78 X 10*3/uL (4.50-10.00)
[2024-07-30 09:18] LABS: BUN/Creat Ratio 21.12 Ratio (12.00-20.00); Blood Urea Nitrogen 16.9 mg/dL (9.0-27.0); Calcium 10.5 mg/dL (8.7-10.3); Carbon Dioxide 29.1 mmol/L (21.6-31.8); Chloride 97 mmol/L (96-109); Glucose 137 mg/dL (70-110); Potassium 3.7 mmol/L (3.5-5.5); Sodium 141 mmol/L (135-145)
[2024-07-30 11:57] VITALS: BP 184/81; PULSE 82; TEMP 97.7
== END 2024-07-30 16:17 | disposition home or self-care (01) | DRG 101 ==
LOC: EC 10:31 → 5NMEDONC 14:18
PROVIDERS: ADMIT Internal Medicine; ATTEND Internal Medicine
DX: G40.401 Other generalized epilepsy and epileptic syndromes, not intractable, with status epilepticus (principal); F05 Delirium due to known physiological condition; F32.A Depression, unspecified; I10 Essential (primary) hypertension; F41.9 Anxiety disorder, unspecified; S01.552A Open bite of oral cavity, initial encounter; E78.5 Hyperlipidemia, unspecified; Z79.899 Other long term (current) drug therapy
CPT/HCPCS: 36415; 70450; 71046; 72125; 80048; 80053; 80177; 80306; 81003; 84484; 85025; 93005; 95816; 96361; 96374; 99291